=== PATIENT | female | born 1960 | race Caucasian/White ===

== ENCOUNTER 2018-03-20 18:13 | Emergency (ER) | payer BC ==
[2018-03-20] MEDS ORDERED: Sodium Chloride 0.9% 1000 ML 1,000 ML IV STA ×2 (18:31→20:24)
[2018-03-20] MEDS ORDERED: Sodium Chloride 0.9% 1000 ML 1,000 ML ONE ×2 (18:36→20:23)
--- NOTE | 2018-03-20 18:37 | ERPHSYRPT ---
- History of Present Illness Source: patient Exam Limitations: no limitations Patient Subjective Stated Complaint: pt here for high blood sugar dx today at [facility] and was told to come to er, pt bs was over 500. she states she has not felt well for a few, voiding lots and is thristy Triage Nursing Assessment: pt walked in k, skin w/d/p.resp easy, no edema noted Timing/Duration: day(s) (2) Severity: mild Modifying Factors: Improves With: nothing Associated Symptoms: other (dizziness, blurred vision) Hx Influenza Vaccination/Date Given: No Hx Pneumococcal Vaccination/Date Given: No Immunizations Up to Date: Yes <CRESCENCIO CLEMENTE - Last Filed: 03/20/18 19:05> <PATRICA MILLER - Last Filed: 03/20/18 21:41> - History of Present Illness Time Seen by Provider: 03/20/18 18:30 Physician History: Pt states, she has not been feeling well x 2 days, c/o dizziness, blurred vision , frequent urination. She started taking Minocycline which was given by her doctor months ago for sinusitis. She went to [facility] today, accucheck was > 500 and she was sent here. She denies headaches, chest pain, cough, SOB, fever, chills, nausea, vomiting, or other complaints. (CRESCENCIO CLEMENTE) Allergies/Adverse Reactions: fexofenadine [From [facility]] Allergy (Verified 03/20/18 18:21) pseudoephedrine [From [facility]] Allergy (Verified 03/20/18 18:21) Home Medications: Hydrocortisone 1% Cream [Cortisone 1% Cream] 1 ea DAILY 03/20/18 [History] Levothyroxine Sodium 100 Mcg [Synthroid 100 Mcg] 100 mcg DAILY 03/20/18 [ History] Triamcinolone 0.1% Cream [Kenalog 0.1% Cream 15 gm] 1 ea DAILY 03/20/18 [ History] - Review of Systems Constitutional: No Symptoms Eyes: Vision Changes Neurological: Dizziness All Other Systems: Reviewed and Negative <CRESCENCIO CLEMENTE - Last Filed: 03/20/18 19:05> - Past Medical History Neurological History: No Pertinent History Cardiac History: No Pertinent History Respiratory History: No Pertinent History Endocrine Medical History: Hypothyroidism Musculoskeletal History: Osteoarthritis Other Medical History: GERD - Past Surgical History Past Surgical History: Yes Musculoskeletal: Joint Replacement, Orthopedic Surgery Female Surgical History: Tubal Ligation Other Surgical History: thermal ablasion,hip replacement - Social History Smoking Status: Current every day smoker Exposure to second hand smoke: Yes Drug Use: none Patient Lives Alone: No - Female History Hx Last Menstrual Period: no Hx Now: No <CRESCENCIO CLEMENTE - Last Filed: 03/20/18 19:05> - Physical Exam General Appearance: no apparent distress Eye Exam: PERRL/EOMI, eyes nml inspection Ears, Nose, Throat Exam: normal ENT inspection, pharynx normal Neck Exam: normal inspection, non-tender, supple, No carotid bruit, No JVD Respiratory Exam: normal breath sounds, lungs clear, airway intact, No chest tenderness Cardiovascular Exam: regular rate/rhythm, normal heart sounds, normal peripheral pulses, No murmur Gastrointestinal/Abdomen Exam: soft, normal bowel sounds, No tenderness, No distention, No mass, No guarding, No rebound, No organomegaly Back Exam: normal inspection, No CVA tenderness, No vertebral tenderness Extremity Exam: normal inspection, No pedal edema Neurologic Exam: alert, oriented x 3, normal mood/affect Skin Exam: normal color, warm, dry, No rash Lymphatic Exam: No adenopathy SpO2 Interpretation: normal SpO2: 96 Oxygen Delivery: Room Air <CRESCENCIO CLEMENTE - Filed: 03/20/18 19:05> - Nursing Vital Signs Nursing Vital Signs: Initial Vital Signs Temperature 98.0 F 03/20/18 18:17 Pulse Rate 100 H 03/20/18 18:17 Respiratory Rate 16 03/20/18 18:17 Blood Pressure 159/90 03/20/18 18:17 O2 Sat by Pulse Oximetry 96 03/20/18 18:17 Pain Scale Pain Intensity 0 Ordered Tests: Active Orders 24 hr Category Date Time Status ACCUCHECK [Accucheck] STAT Care 03/20/18 19:50 Active ACCUCHECK [Accucheck] STAT Care 03/20/18 20:24 Active IV Insertion STAT Care 03/20/18 18:31 Active CBC W DIFF Stat Lab 03/20/18 18:30 Completed CK-Creatinine Phosphokinase Stat Lab 03/20/18 18:30 Completed CMP Stat Lab 03/20/18 18:30 Completed MAGNESIUM Stat Lab 03/20/18 18:30 Completed TROPONIN Q3H Lab 03/20/18 18:30 Completed TROPONIN Q3H Lab 03/20/18 21:45 Ordered TROPONIN Q3H Lab 03/21/18 00:45 Ordered TROPONIN Q3H Lab 03/21/18 03:45 Ordered TROPONIN Q3H Lab 03/21/18 06:45 Ordered UA W/ MICROSCOPIC Stat Lab 03/20/18 18:30 Completed Medication Summary Generic Name Dose Route Start Last Admin Trade Name Freq PRN Reason Stop Dose Admin Sodium Chloride 1,000 mls @ 999 mls/hr 03/20/18 20:24 03/20/18 20:28 Sodium Chloride 0.9% 1000 Ml IV 03/20/18 21:24 999 mls/hr .Q1H1M STA Administration Discontinued Medications Generic Name Dose Route Start Last Admin Trade Name Freq PRN Reason Stop Dose Admin Sodium Chloride 1,000 mls @ 999 mls/hr 03/20/18 18:31 03/20/18 18:37 Sodium Chloride 0.9% 1000 Ml IV 03/20/18 19:31 999 mls/hr .Q1H1M STA Administration Sodium Chloride Confirm 03/20/18 18:36 Sodium Chloride 0.9% 1000 Ml Administered 03/20/18 18:37 Dose 1,000 mls @ ud .ROUTE .STK-MED ONE Sodium Chloride Confirm 03/20/18 20:23 Sodium Chloride 0.9% 1000 Ml Administered 03/20/18 20:24 Dose 1,000 mls @ ud .ROUTE .STK-MED ONE Lab/Rad Data: Laboratory Result Diagrams 03/20/18 18:30 03/20/18 18:30 Laboratory Results 03/20/18 03/20/18 03/20/18 Range/Units 18:30 18:30 18:30 WBC (4.0-10.5) K/mm3 RBC (4.1-5.4) M/mm3 Hgb (12.0-16.0) gm/dl Hct (35-47) % MCV (78-100) fl MCH (26-32) pg MCHC (32-36) g/dl RDW (11.5-14.0) % Plt Count (150-450) K/mm3 MPV (6-9.5) fl Gran % (36.0-66.0) % Eos # (Auto) (0-0.5) Absolute Lymphs (auto) (1.0-4.6) Absolute Monos (auto) (0.0-1.3) Lymphocytes % (24.0-44.0) % Monocytes % (0.0-12.0) % Eosinophils % (0.00-5.0) % Basophils % (0.0-0.4) % Absolute Granulocytes (1.4-6.9) Basophils # (0-0.4) Sodium 133 L (137-145) mmol/L Potassium 4.1 (3.5-5.1) mmol/L Chloride 96 L (98-107) mmol/L Carbon Dioxide 26 (22-30) mmol/L Anion Gap 15.4 H (5-15) MEQ/L BUN 15 (7-17) mg/dL Creatinine 0.91 (0.52-1.04) mg/dL Estimated GFR > 60.0 ML/MIN Glucose 491 H (74-106) mg/dL Calcium 9.7 (8.4-10.2) mg/dL Magnesium 1.6 (1.6-2.3) mg/dL Total Bilirubin 0.90 (0.2-1.3) mg/dL AST 26 (14-36) U/L ALT 34 (0-35) U/L Alkaline Phosphatase 164 H (38-126) U/L Creatine Kinase 157 H (30-135) U/L Troponin I < 0.012 (0.000-0.034) ng/mL Serum Total Protein 7.1 (6.3-8.2) g/dL Albumin 4.3 (3.5-5.0) g/dL Ur Collection Type CCMS Urine Color YELLOW (YELLOW) Urine Appearance CLEAR (CLEAR) Urine pH 5.0 (5-6) Ur Specific [place] 1.015 (1.005-1.025) Urine Protein NEGATIVE (Negative) Urine Ketones NEGATIVE (NEGATIVE) Urine Blood TRACE NON-HEM (0-5) Zeyad/ul Urine Nitrite NEGATIVE (NEGATIVE) Urine Bilirubin NEGATIVE (NEGATIVE) Urine Urobilinogen NORMAL (0-1) mg/dL Ur Leukocyte Esterase NEGATIVE (NEGATIVE) Urine Microscopic RBC 0-2 (0-2) /HPF Urine Microscopic WBC 0-2 (0-5) /HPF Ur Epithelial Cells FEW (FEW) /HPF Urine Culture Reflexed NO (NO) Urine Glucose 1000 (NEGATIVE) mg/dL 03/20/18 Range/Units 18:30 WBC 7.2 (4.0-10.5) K/mm3 RBC 4.78 (4.1-5.4) M/mm3 Hgb 14.5 (12.0-16.0) gm/dl Hct 42.8 (35-47) % MCV 89.5 (78-100) fl MCH 30.3 (26-32) pg MCHC 33.9 (32-36) g/dl RDW 14.9 H (11.5-14.0) % Plt Count 198 (150-450) K/mm3 MPV 12.0 H (6-9.5) fl Gran % 71.8 H (36.0-66.0) % Eos # (Auto) 0.14 (0-0.5) Absolute Lymphs (auto) 1.30 (1.0-4.6) Absolute Monos (auto) 0.56 (0.0-1.3) Lymphocytes % 18.0 L (24.0-44.0) % Monocytes % 7.7 (0.0-12.0) % Eosinophils % 1.9 (0.00-5.0) % Basophils % 0.6 (0.0-0.4) % Absolute Granulocytes 5.20 (1.4-6.9) Basophils # 0.04 (0-0.4) Sodium (137-145) mmol/L Potassium (3.5-5.1) mmol/L Chloride (98-107) mmol/L Carbon Dioxide (22-30) mmol/L Anion Gap (5-15) MEQ/L BUN (7-17) mg/dL Creatinine (0.52-1.04) mg/dL Estimated GFR ML/MIN Glucose (74-106) mg/dL Calcium (8.4-10.2) mg/dL Magnesium (1.6-2.3) mg/dL Total Bilirubin (0.2-1.3) mg/dL AST (14-36) U/L ALT (0-35) U/L Alkaline Phosphatase (38-126) U/L Creatine Kinase (30-135) U/L Troponin I (0.000-0.034) ng/mL Serum Total Protein (6.3-8.2) g/dL Albumin (3.5-5.0) g/dL Ur Collection Type Urine Color (YELLOW) Urine Appearance (CLEAR) Urine pH (5-6) Ur Specific [place] (1.005-1.025) Urine Protein (Negative) Urine Ketones (NEGATIVE) Urine Blood (0-5) Zeyad/ul Urine Nitrite (NEGATIVE) Urine Bilirubin (NEGATIVE) Urine Urobilinogen (0-1) mg/dL Ur Leukocyte Esterase (NEGATIVE) Urine Microscopic RBC (0-2) /HPF Urine Microscopic WBC (0-5) /HPF Ur Epithelial Cells (FEW) /HPF Urine Culture Reflexed (NO) Urine Glucose (NEGATIVE) mg/dL - Progress Progress: improved <CRESCENCIO CLEMENTE - Last Filed: 03/20/18 19:05> - Progress Counseled pt/family regarding: lab results, diagnosis, need for follow-up <PATRICA MILLER - Last Filed: 03/20/18 21:41> - Progress Progress Note: 03/20/18 19:06 Hyperglycemia (CRESCENCIO CLEMENTE) 03/20/18 19:49 Pt care discussed and care accepted from Dr Clemente at 19:00. 03/20/18 19:51 BG 435 after 300 ml NS IV. 03/20/18 20:26 BG 407 after 1 L NS IV. 03/20/18 21:20 BG 355 after 2 L NS IV. (PATRICA MILLER) <CRESCENCIO CLEMENTE - Last Filed: 03/20/18 19:05> - Departure Time of Disposition: 21:34 Departure Disposition: Home Critical Care Time: No <PATRICA MILLER - Last Filed: 03/20/18 21:41> - Departure Clinical Impression: Hyperglycemia due to type 2 diabetes mellitus Condition: Stable Referrals: GULSHAN SEYMOUR [Primary Care Provider] - Instructions: Hyperglycemia, Adult (DC) Additional Instructions: You have an elevated blood glucose type 2 diabetes. You were given 2 L of normal saline by IV in the ER. You were also given metformin 500 mg orally. Continue with metformin 500 mg every morning. Follow-up with Dr. Seymour within a week. Prescriptions: Metformin HCl 500 mg PO DAILY #7 tablet
[2018-03-20 18:44] LABS: BASOPHIL % 0.6 % (0.0-0.4); Basophil (Absolute #) 0.04 (0-0.4); Eosinophil % 1.9 % (0.00-5.0); Eosinophil (Absolute #) 0.14 (0-0.5); Granulocytes % 71.8 % (36.0-66.0); Hematocrit 42.8 % (35-47); Hemoglobin 14.5 gm/dl (12.0-16.0); Mean Cell Volume 89.5 fl (78-100); Mean Corpuscular Hemoglobin 30.3 pg (26-32); Mean Corpuscular Hgb Concent. 33.9 g/dl (32-36); Monocyte (Absolute #) 0.56 (0.0-1.3); Monocytes % 7.7 % (0.0-12.0); Platelet Count 198 K/mm3 (150-450); Red Blood Count 4.78 M/mm3 (4.1-5.4); Red Cell Distribution Width 14.9 % (11.5-14.0); White Blood Count 7.2 K/mm3 (4.0-10.5)
[2018-03-20 19:01] LABS: ALBUMIN 4.3 g/dL (3.5-5.0); ALKALINE PHOSPHATASE 164 U/L (38-126); ANION GAP 15.4 MEQ/L (5-15); BLOOD UREA NITROGEN 15 mg/dL (7-17); CHLORIDE 96 mmol/L (98-107); CK-Creatinine Phosphokinase 157 U/L (30-135); Calcium 9.7 mg/dL (8.4-10.2); Carbon Dioxide 26 mmol/L (22-30); Creatinine 1 0.91 mg/dL (0.52-1.04); Glucose 491 mg/dL (74-106); Potassium 4.1 mmol/L (3.5-5.1); SGOT/AST 26 U/L (14-36); SGPT/ALT 34 U/L (0-35); SODIUM 133 mmol/L (137-145); Total Protein 7.1 g/dL (6.3-8.2)
[2018-03-20 19:08] LABS: Appearance CLEAR (CLEAR); Bilirubin NEGATIVE (NEGATIVE); Blood TRACE NON-HEM Ery/ul (0-5); Glucose 1000 mg/dL (NEGATIVE); Ketones NEGATIVE (NEGATIVE); Leukocyte Esterase NEGATIVE (NEGATIVE); Nitrite NEGATIVE (NEGATIVE); Protein,Urine Dip NEGATIVE (Negative); Specific Gravity 1.015 (1.005-1.025); Urobilinogen NORMAL mg/dL (0-1)
[2018-03-20 19:09] LABS: Epithelial Cells FEW /HPF (FEW); RBC 0-2 /HPF (0-2); WBC 0-2 /HPF (0-5)
[2018-03-20 19:12] VITALS: BP 141/80
[2018-03-20 20:04] VITALS: O2SAT 99
[2018-03-20] MEDS ORDERED: Glucophage 500 MG PO STA (21:36)
[2018-03-20 21:59] VITALS: PULSE 70
== END 2018-03-20 21:59 | disposition home or self-care (01) ==
LOC: ED 18:13
DX: E11.65 Type 2 diabetes mellitus with hyperglycemia (principal); Z79.899 Other long term (current) drug therapy
CPT/HCPCS: 36000; 36415; 80053; 81000; 82550; 82962; 83735; 84484; 85025; 96360; 96361; 99284; A9270-GY